=== PATIENT | male | born 1955 | race Caucasian/White ===

== ENCOUNTER 2018-05-05 11:43 | Day surgery (SDC) | payer OTHER ==
[~2018-05-05] VITALS: Ht 185.4 cm; Wt 76.6 kg
[~2018-05-05 11:43] MED LIST: ASPI-817 PO; DOCU-144 PO; HYDR-3498 PO; IBUP-1982 PO; LIDOCAINE 2% (SDV) 5 ML INJ ONE; LORA0.5T PO; LUN3 PO; PROPOFOL 200 MG INJ ONE
[2018-05-05 12:28] VITALS: Ht 185.4 cm; Wt 76.6 kg
--- NOTE | 2018-05-05 13:10 | PREAC ---
Date/Time of Note Date/Time of Note DATE: 05/05/18 TIME: 13:09 Anesthesia Eval and Record Evaluation Time Pre-Procedure Interview DATE: 05/05/18 TIME: 13:09 Age 62 Sex male NPO: 8 hrs Preoperative diagnosis hoarseness Planned procedure EGD Past Medical History Past Medical History: Includes GI: GERD Psych: Anxiety Surgery & Anesthesia Issues No known issue Meds Anticoagulation: No Beta Dione within 24 hr: No Reason Beta Dione not given: Pt. not on B-Dione Reported Medications [None] No Conflict Check 05/05/18 Discontinued Reported Medications Aspirin* (Aspirin* EC) 81 Mg Tablet.dr, 81 MG PO DAILY, TAB 06/20/14 Ibuprofen* (Ibuprofen*) 200 Mg Capsule, 200 MG PO QID PRN for PAIN, CAP 06/20/14 Lorazepam* (Lorazepam*) 0.5 Mg Tablet, 0.5 MG PO HS PRN for SLEEP, TAB 06/20/14 Eszopiclone (Lunesta) 3 Mg Tablet, 3 MG PO HS PRN for INSOMNIA, TAB 06/20/14 Discontinued Scripts Docusate Sodium* (Colace*) 100 Mg Capsule, 100 MG PO DAILY, #20 CAP Prov:JOSR CLARK CASING TIER 06/21/14 Hydrocodone Bit-Acetaminophen* ([place]*) 5-325 Mg Tab, 1 TAB PO Q4H PRN for PAIN, #20 TAB Prov:JOSR CLARK CASING TIER 06/21/14 Meds reviewed: Yes Allergies Coded Allergies: No Known Allergy (Unverified , 06/20/14) Allergies Reviewed: Yes Labs/Studies Labs Reviewed: Reviewed by anesthesiologist test: N/A Pre-procedure Exam Airway: Adequate mouth opening, Adequate thyromental dist Mallampati: Mallampati III Teeth: Normal Lung: Normal Heart: Normal ASA Physical Status ASA physical status: 2 Emergency: None Planned Anesthetic General/MAC: MAC Planned Pain Management Parenteral pain med Pre-operative Attestations Prior to commencing anesthesia and surgery, the patient was re-evaluated, there was verification of: *The patient's identity *The results of appropriate recent lab work and preoperative vital signs *The above evaluation not changing prior to induction *Anesthetic plan, risk benefits, alternative and complications discussed with patient/family; questions answered; patient/family understands, accepts and wishes to proceed. HOSSEIN CÁRDENAS MD May 05, 2018 13:09
[2018-05-05 13:19] VITALS: BP 134/81; PULSE 64; RESP 18
[2018-05-05] MEDS ORDERED: PROPOFOL 40 ML ONE (13:26)
[2018-05-05 14:30] VITALS: BP 115/70; RESP 20
--- NOTE | 2018-05-05 15:41 | HPN ---
Date/Time of Note Date/Time of Note DATE: 05/05/18 TIME: 15:41 Interval H&P Admission Note Pt. seen H&P reviewed: No system changes SHANNAN VERA May 05, 2018 15:41
--- NOTE | 2018-05-06 07:25 | PAC ---
Date/Time of Note Date/Time of Note DATE: 05/06/18 TIME: 07:25 Post-Anesthesia Notes Post-Anesthesia Note Last documented vital signs Vital Signs Date Temp Pulse Resp B/P (MAP) Pulse Ox O2 O2 Flow FiO2 Time Delivery Rate 05/05/18 20 115/70 98 14:30 (85) 05/05/18 97.5 64 Room Air 13:19 Activity: WNL Respiratory function: WNL Cardiovascular function: WNL Mental status: Baseline Pain reasonably controlled: Yes Hydration appropriate: Yes Nausea/Vomiting absent: Yes HOSSEIN CÁRDENAS MD May 06, 2018 07:25
== END 2018-05-05 15:51 | disposition home or self-care (01) ==
LOC: GIL 11:43
PROVIDERS: ATTEND Internal Medicine Gastroenterology
DX: K29.30 Chronic superficial gastritis without bleeding (principal)
CPT/HCPCS: 88305; 88312; 88313

== ENCOUNTER 2018-07-03 20:31 | Emergency (ER) | payer OTHER ==
[~2018-07-03] VITALS: Ht 185.4 cm; Wt 79.2 kg
[2018-07-03 20:37] VITALS: BP 148/71; PULSE 70; RESP 16; Ht 185.4 cm; Wt 79.2 kg
[2018-07-04] MEDS ORDERED: ACETAMINOPHEN 500 MG TAB PO STA (00:04)
--- NOTE | 2018-07-04 02:41 | ERD ---
ER Documentation Chief Complaint Chief Complaint fall onto L buttock while playing tennis, no KO HPI 62-year-old male medical history of GERD presents for presybeterian pain status post fall while playing sports today. He states that he has 6 out of 10 pain in the left buttock area. Pain described as sharp, nonradiating. He denies head injury. No treatment tried at home. No other modifying factors noted. ROS All systems reviewed and are negative except as per history of present illness. Medications Home Meds Reported Medications [None] No Conflict Check 05/05/18 Allergies Allergies: Coded Allergies: No Known Allergy (Unverified , 06/20/14) PMhx/Soc History of Surgery: Yes (HERNIA SX, HEMORRHOIDECTOMY) Anesthesia Reaction: No Hx Neurological Disorder: No Hx Respiratory Disorders: No Hx Cardiac Disorders: No Hx Psychiatric Problems: No Hx Miscellaneous Medical Probl: Yes (gastritis) Hx Alcohol Use: No Hx Substance Use: No Hx Tobacco Use: No Physical Exam Vitals Vital Signs Date Temp Pulse Resp B/P (MAP) Pulse Ox O2 O2 Flow FiO2 Time Delivery Rate 07/03/18 97.0 70 16 148/71 100 20:37 (96) Physical Exam Const: No acute distress Resp: Clear to auscultation bilaterally Cardio: Regular rate and rhythm, no murmurs Abd: Soft, non tender, non distended. Normal bowel sounds Skin: No petechiae or rashes Back: There is mild low back tenderness with some left buttocks tenderness Ext: No cyanosis, or edema Neur: Awake and alert Psych: Normal Mood and Affect Results 24 hrs Current Medications Medications Dose Sig/Mara Start Time Status Last (Trade) Ordered Route PRN Stop Time Admin Dose Reason Admin 500 mg ONCE STAT 07/04/18 DC 07/04/18 Acetaminophen PO 00:04 07/04/18 00:24 (Tylenol 00:05 Tab) Procedures/MDM Medical Decision Making: Differential diagnosis includes but not limited to fracture, dislocation, muscle strain, ligamentous sprain. Patient appeared well on physical exam. There was tenderness over the low back Patient was neurovascularly intact ED course: Patient was given Tylenol. Symptoms improved with treatment. Imaging: Sacral and coccyx x-ray showed no fracture, no soft tissue injury, no dislocation Patient advised to follow up with PCP in 1-2 days. Patient advised to return to ED for new or worsening symptoms. Patient stable on discharge from the ED. Disclaimer: Inadvertent spelling and grammatical errors are likely due to EHR/dictation software use and do not reflect on the overall quality of patient care. Also, please note that the electronic time recorded on this note does not necessarily reflect the actual time of the patient encounter. Departure Diagnosis: Primary Impression: Fall with no significant injury Encounter type: initial encounter Qualified Codes: W19.XXXA - Unspecified fall, initial encounter Condition: Fair Patient Instructions: Back Pain (Acute Or Chronic) Referrals: [facility] YOU HAVE RECEIVED A MEDICAL SCREENING EXAM AND THE RESULTS INDICATE THAT YOU DO NOT HAVE A CONDITION THAT REQUIRES URGENT TREATMENT IN THE EMERGENCY DEPARTMENT. FURTHER EVALUATION AND TREATMENT OF YOUR CONDITION CAN WAIT UNTIL YOU ARE SEEN IN YOUR DOCTORS OFFICE WITHIN THE NEXT 1-2 DAYS. IT IS YOUR RESPONSIBILITY TO MAKE AN APPOINTMENT FOR FOLOW-UP CARE. IF YOU HAVE A PRIMARY DOCTOR --you should call your primary doctor and schedule an appointment IF YOU DO NOT HAVE A PRIMARY DOCTOR YOU CAN CALL OUR PHYSICIAN REFERRAL HOTLINE AT IF YOU CAN NOT AFFORD TO SEE A PHYSICIAN YOU CAN CHOSE FROM THE FOLLOWING [facility] [address] [facility]. [facility] [address] [facility]. [facility] [address] [facility] [facility] [address] [facility]. [facility] [address] [facility]. [facility]. [address] Additional Instructions: Call your primary care doctor TOMORROW for an appointment during the next 1-2 days.See the doctor sooner or return here if your condition worsens before your appointment time. DONELL DHALIWAL DO July 04, 2018 02:40
== END 2018-07-04 02:46 | disposition home or self-care (01) ==
LOC: FTE 20:31
DX: M54.5 Low back pain (principal)
CPT/HCPCS: 72220; Z7502; Z7610

== ENCOUNTER 2018-09-11 16:03 | Emergency (ER) | payer OTHER ==
[~2018-09-11] VITALS: Ht 172.7 cm; Wt 89.0 kg
[2018-09-11] MEDS ORDERED: SOD CHLORIDE 0.9% 1,000 ML IV STA (16:20)
[2018-09-11] MEDS ORDERED: ONDANSETRON 4 MG INJ IV STA ×2 (16:20→20:41)
[2018-09-11 16:24] VITALS: Ht 172.7 cm; Wt 89.0 kg
[2018-09-11] MEDS ORDERED: LORAZEPAM 2 MG INJ IV ONE (16:30)
[2018-09-11] MEDS ORDERED: DEXTROSE 50% 50 ML SYRINGE IV STA (16:43)
[2018-09-11] MEDS ORDERED: DEXTROSE 50% 50 ML SYRINGE ONE (16:43)
[2018-09-11 21:24] VITALS: BP 114/85; PULSE 68; RESP 18
--- NOTE | 2018-09-11 21:27 | ERD ---
ER Documentation Chief Complaint Chief Complaint TREMAYNE from MD's office for nausea/syncopal episode during ear lavage HPI Patient is a 63-year-old male with no medical problems who presents with near syncope. The patient was brought in by ambulance. He was at an urgent care and had his ear lavaged and afterwards he became very dizzy and vomited. He had syncope and his blood pressure was low per paramedics. He was given fluids and Zofran. He had nausea but no vomiting. His blood sugar was 68 by paramedics. It was a bilateral ear lavage. He said that he is very sensitive and gets motion sickness frequently. Upon review of old medical records this is the patient's fifth visit to the ER since 2014. ROS All systems reviewed and are negative except as per history of present illness. Medications Home Meds Reported Medications [None] No Conflict Check 05/05/18 Allergies Allergies: Coded Allergies: No Known Allergy (Unverified , 06/20/14) PMhx/Soc History of Surgery: Yes (HERNIA SX, HEMORRHOIDECTOMY) Anesthesia Reaction: No Hx Neurological Disorder: No Hx Respiratory Disorders: No Hx Cardiac Disorders: No Hx Psychiatric Problems: No Hx Miscellaneous Medical Probl: Yes (gastritis) Hx Alcohol Use: No Hx Substance Use: No Hx Tobacco Use: No Smoking Status: Never smoker FmHx Family History: No diabetes Physical Exam Vitals Vital Signs Date Temp Pulse Resp B/P (MAP) Pulse Ox O2 O2 Flow FiO2 Time Delivery Rate 09/11/18 67 18 118/69 100 Room Air 17:30 (85) 09/11/18 97.1 65 20 108/56 100 16:24 (73) Physical Exam Const: Moderate distress Head: Atraumatic Eyes: Normal Conjunctiva ENT: Normal External Ears, Nose and Mouth. No signs of tympanic membrane rupture Neck: Full range of motion. No meningismus. Resp: Clear to auscultation bilaterally Cardio: Regular rate and rhythm, no murmurs Abd: Soft, non tender, non distended. Normal bowel sounds Skin: No petechiae or rashes Back: No midline or flank tenderness Ext: No cyanosis, or edema Neur: Awake and alert, dizziness is worsened with any movement of the head Psych: Normal Mood and Affect Result Diagram: 09/11/18 1634 09/11/18 1820 Results 24 hrs Laboratory Tests Test 09/11/18 16:34 09/11/18 18:20 White Blood Count 4.0 10^3/ul Red Blood Count 3.12 10^6/ul Hemoglobin 9.6 g/dl Hematocrit 28.3 % Mean Corpuscular Volume 90.7 fl Mean Corpuscular Hemoglobin 30.8 pg Mean Corpuscular Hemoglobin Concent 33.9 g/dl Red Cell Distribution Width 14.3 % Platelet Count 100 10^3/UL Mean Platelet Volume 13.9 fl Neutrophils % 52.0 % Lymphocytes % 32.3 % Monocytes % 11.8 % Eosinophils % 2.8 % Basophils % 0.8 % Nucleated Red Blood Cells % 0.0 /100WBC Neutrophils # 2.1 10^3/ul Lymphocytes # 1.3 10^3/ul Monocytes # 0.5 10^3/ul Eosinophils # 0.1 10^3/ul Basophils # 0.0 10^3/ul Nucleated Red Blood Cells # 0.0 10^3/ul Sodium Level 136 mmol/L Potassium Level 3.9 mmol/L Chloride Level 106 mmol/L Carbon Dioxide Level 23 mmol/L Anion Gap 7 Blood Urea Nitrogen 15 mg/dl Creatinine 1.04 mg/dl Est Glomerular Filtrat Rate mL/min > 60 mL/min Glucose Level 177 mg/dl Calcium Level 8.4 mg/dl Troponin I < 0.012 ng/ml Current Medications Medications Dose Sig/Mara Start Time Status Last (Trade) Ordered Route PRN Stop Time Admin Dose Reason Admin Sodium 1,000 ml @ Q1H STAT 09/11/18 DC 09/11/18 Chloride 1,000 mls/hr IV 16:20 16:38 09/11/18 17:19 Lorazepam 0.5 mg ONCE ONCE 09/11/18 DC 09/11/18 (Ativan) IV 16:30 16:38 09/11/18 16:31 Ondansetron 4 mg ONCE STAT 09/11/18 DC 09/11/18 HCl (Zofran IV 16:20 16:38 Inj) 09/11/18 16:21 Dextrose 50 ml ONCE STAT 09/11/18 DC 09/11/18 (D50w IV 16:43 16:47 Syringe) 09/11/18 16:44 Ondansetron 4 mg ONCE STAT 09/11/18 DC 09/11/18 HCl (Zofran IV 20:41 20:43 Inj) 09/11/18 20:42 Dextrose 50 ml STK-MED 09/11/18 DC (D50w ONCE .ROUTE 16:43 Syringe) 09/11/18 20:49 Procedures/MDM Patient is a 63-year-old male with no medical problems who presents with dizziness and syncope. I believe this is likely related to the ear lavage that he had at the urgent care as he felt fine prior to this. The patient was given fluids, Ativan, meclizine. He feels better. He was also given Zofran. His blood sugar was low in the emergency department and he was given D50 IV. He is not diabetic and does not take diabetic medications. He can return for any worsening symptoms. I believe outpatient management is appropriate. I doubt stroke, intracranial hemorrhage, or serious electrolyte abnormality. Departure Diagnosis: Primary Impression: Syncope Syncope type: unspecified Qualified Codes: R55 - Syncope and collapse Additional Impression: Dizziness Condition: Fair Patient Instructions: Dizziness, Unk Cause, Syncope, Unk Cause Referrals: Your doctor Additional Instructions: Call your primary care doctor TOMORROW for an appointment during the next 1-2 days.See the doctor sooner or return here if your condition worsens before your appointment time. LISE DUNN MD Sep 11, 2018 21:27
== END 2018-09-11 21:24 | disposition home or self-care (01) ==
LOC: E/R 16:03
DX: R55 Syncope and collapse (principal); R42 Dizziness and giddiness
CPT/HCPCS: 36415; 80048; 84484; 85025; 96374; 96375; 96376; J2060; J2405; J7030; Z7502; Z7610; 82962; 93005